=== PATIENT | female | born 1990 | race Caucasian/White ===

== ENCOUNTER 2020-06-30 15:55 | Emergency (ER) | payer BC ==
--- OUTSIDE RECORDS SUMMARY | 2020-06-30 15:57 | XMS REPORT | Continuity of Care Document ---
:1990 Author Organization [facility] t Address [address] [place] [address] Care Team Providers Name Role Phone Unavailable Unavailable Unavailable Problems This patient has no known problems. Allergies, Adverse Reactions, Alerts This patient has no known allergies or adverse reactions. Social History Smoking Status Start Date Stop Date Source Light Tobacco Smoker [place] [facility] Medications Ordered Filled Start Stop Current Ordering Indication Dosage Frequency Signature Comments Components Source Medication Medication Date Date Medication? Clinician (SIG) Name Name naproxen naproxen No 1 BID naproxen [place] 500 mg 500 mg 500 mg da tablet Take tablet Take tablet [facility] 1 tablet 1 tablet Take 1 al twice a day twice a day tablet Health by oral by oral twice a Outrea c route as route as day by h needed for needed for oral route Program 10 days. 10 days. as needed for pelvic for pelvic for 10 cramping cramping days. for pelvic cramping Immunizations Ordered Immunization Filled Immunization Date Status Commen ts Source Name Name Tdap Tdap 2013-12-28 Completed [place] 00:00:00 [facility] Vital Signs Vital Name Observation Time Observation Value Comments Source BP Diastolic 2020-05-25 00:00:00 87 [facility]Hg[facility] Height 2020-05-25 00:00:00 65 [in_i] [facility] BMI (Body Mass 2020-05-25 00:00:00 40.5 kg/m2 [facility] swimming teacher [facility] Index) [facility] Program BP Systolic 2020-05-25 00:00:00 129 mm[Hg] [facility] Body Weight 2020-05-25 00:00:00 3892 [oz_av] [facility] Procedures This patient has no known procedures. Plan of Care Planned Activity Planned Date Details Comments Source Diagnostic Test 2020-05-25 CBC w/ auto diff [place] [facility] Pending 00:00:00 [code = CBC w/ auto [facility] diff] Program Diagnostic Test 2020-05-25 CMP, serum or plasma [place] [facility] Pending 00:00:00 [code = CMP, serum [facility] [place] or plasma] Program Diagnostic Test 2020-05-25 urinalysis complete, [place] [facility] Pending 00:00:00 reflex culture [code Health Outreach = urinalysis Program complete, reflex culture] Diagnostic Test 2020-05-25 pap, IG + CT/NG + HR [place] [facility] Pending 00:00:00 HPV [code = pap, IG [facility] + CT/NG + HR HPV] Program Diagnostic Test 2020-05-25 RPR (rapid plasma [place] [facility] Pending 00:00:00 reagin), serum [code Health Outreach = RPR (rapid plasma Program reagin), serum] Diagnostic Test 2020-05-25 HIV (1+2) [place] [facility] iscop[facility] Pending 00:00:00 antibodies, EIA, Health Outr each serum, reflex HIV-1 Program western blot (WB) [code = HIV (1+2) antibodies, EIA, serum, reflex HIV-1 western blot (WB)] Diagnostic Test 2020-05-25 hepatitis panel [place] [facility] Pending 00:00:00 (A+B+C), acute, Health Outre ach serum [code = Program hepatitis panel (A+B+C), acute, serum] Encounters Start End Encounter Admission Attending Care Care Encounter Source Date/Time Date/Time Type Type Clinicians Facility Department ID 2020-05-25 2020-05-25 [place] - [id number] [facility] 00:00:00 00:00:00 BELTRAN Ritter: Janette sandoval [id number] [facility] [address] [facility] [address] [facility] [id number] , Ph. Results This patient has no known results.
--- NOTE | 2020-06-30 17:45 | ER ---
Nurse's Notes [facility] Name: Светлана Mcdowell Age: 29 yrs Sex: Female : 1990 Arrival Date: 06/30/2020 Time: 15:56 Bed 23 Private MD: Diagnosis: Acute upper respiratory infection, unspecified Presentation: 06/30 16:03 Chief complaint: Patient states: Cough and sore throat for 1.5 weeks. No fever. ll1 Coronavirus screen: Client denies travel out of the [place] in the last 14 days. chills, congestion, cough unrelated to allergies, diarrhea, difficulty breathing, fatigue, headache, muscle pain, runny nose, shortness of breath, sore throat, Client presents with at least one sign or symptom that may indicate coronavirus-19. Standard/surgical mask placed on the client. Ebola Screen: Patient denies travel to an Ebola-affected area in the 21 days before illness onset. Initial Sepsis Screen: Does the patient meet any 2 criteria? No. Patient's initial sepsis screen is negative. Does the patient have a suspected source of infection? Yes: Other: sore throat. Risk Assessment: Do you want to hurt yourself or someone else? Patient reports no desire to harm self or others. Onset of symptoms was June 23, 2020. 16:03 Method Of Arrival: Ambulatory ll1 16:03 Acuity: RUBINA 3 ll1 Historical: - Allergies: 16:06 Amoxicillin; ll1 - PMHx: 16:06 None; ll1 - PSHx: 16:06 ; ll1 - Immunization history:: Flu vaccine is not up to date. - Social history:: Smoking status: Patient reports the use of cigarette tobacco products, smokes one pack cigarettes per day. Screenin:32 Abuse screen: Denies threats or abuse. Nutritional screening: No deficits noted. bw Tuberculosis screening: No symptoms or risk factors identified. Fall Risk None identified. Assessment: 16:32 General: Appears in no apparent distress. uncomfortable, Behavior is calm, cooperative. bw Pain: Denies pain. Neuro: No deficits noted. Cardiovascular: No deficits noted. Respiratory: Airway is patent Respiratory effort is even, unlabored, Breath sounds are clear Breath sounds are diminished bilaterally. EENT: Throat is reddened. Vital Signs: 16:03 BP 123 / 70; Pulse 76; Resp 17; Temp 98.9; Pulse Ox 98% ; Weight 99.79 kg; Height 5 ft. ll1 4 in. (162.56 cm); Pain 6/10; 16:03 Body Mass Index 37.76 (99.79 kg, 162.56 cm) ll1 ED Course: 15:56 Patient arrived in ED. as 16:05 Triage completed. ll1 16:06 Arm band placed on. 1 16:27 Inderjit Mack PA is PHCP. jr8 16:27 Navin Mars MD is Attending Physician. jr8 16:30 Alley Ramos, RN is Primary Nurse. bw 16:32 Patient has correct armband on for positive identification. Bed in low position. Call light in reach. Side rails up X 1. 16:32 No provider procedures requiring assistance completed. bw 17:56 Patient did not have IV access during this emergency room visit. vg1 Administered Medications: No medications were administered Outcome: 17:44 Discharge ordered by . [facility] 17:56 Discharged to home ambulatory. vg1 17:56 Condition: stable 17:56 Discharge instructions given to patient, Instructed on discharge instructions, follow up and referral plans. medication usage, Demonstrated understanding of instructions, follow-up care, medications, Prescriptions given X 2. 17:57 Patient left the ED. vg1 Signatures: Linda Landry Josh, PA PA jr8 Maria Victoria Garcia RN JOVANI 1 Darlyn Dobbs RN RN [facility] Alley Ramos RN RN
--- NOTE | 2020-06-30 17:45 | EDPHYS ---
Physician Documentation [facility] Name: Светлана Mcdowell Age: 29 yrs Sex: Female : 1990 Arrival Date: 06/30/2020 Time: 15:56 Bed 23 Private MD: ED Physician Navin Mars HPI: 06/30 17:26 This 29 yrs old Female presents to ER via Ambulatory with complaints of Sore jr8 Throat, Cough. 17:26 The patient presents with sore throat. The patient describes throat pain as dry. Onset: jr8 The symptoms/episode began/occurred gradually, 1 week(s) ago. Severity of symptoms: At their worst the symptoms were mild, in the emergency department the symptoms are unchanged. Modifying factors: The symptoms are alleviated by nothing, the symptoms are aggravated by nothing. Associated signs and symptoms: Pertinent positives: cough. The patient has not experienced similar symptoms in the past. The patient has not recently seen a physician. Historical: - Allergies: 16:06 Amoxicillin; ll1 - PMHx: 16:06 None; ll1 - PSHx: 16:06 ; ll1 - Immunization history:: Flu vaccine is not up to date. - Social history:: Smoking status: Patient reports the use of cigarette tobacco products, smokes one pack cigarettes per day. ROS: 17:26 Eyes: Negative for injury, pain, redness, and discharge, Neck: Negative for injury, jr8 pain, and swelling, Cardiovascular: Negative for chest pain, palpitations, and edema, Abdomen/GI: Negative for abdominal pain, nausea, vomiting, diarrhea, and constipation, Back: Negative for injury and pain, MS/Extremity: Negative for injury and deformity, Skin: Negative for injury, rash, and discoloration, Neuro: Negative for headache, weakness, numbness, tingling, and seizure. 17:26 ENT: Positive for sore throat. 17:26 Respiratory: Positive for cough, with green sputum, wheezing, Negative for dyspnea on exertion, orthopnea, shortness of breath. Exam: 17:26 Eyes: Pupils equal round and reactive to light, extra-ocular motions intact. Lids and jr8 lashes normal. Conjunctiva and sclera are non-icteric and not injected. Cornea within normal limits. Periorbital areas with no swelling, redness, or edema. ENT: Nares patent. No nasal discharge, no septal abnormalities noted. Tympanic membranes are normal and external auditory canals are clear. Oropharynx with no redness, swelling, or masses, exudates, or evidence of obstruction, uvula midline. Mucous membranes moist. Neck: Trachea midline, no thyromegaly or masses palpated, and no cervical lymphadenopathy. Supple, full range of motion without nuchal rigidity, or vertebral point tenderness. No Meningismus. Cardiovascular: Regular rate and rhythm with a normal S1 and S2. No gallops, murmurs, or rubs. Normal PMI, no JVD. No pulse deficits. Respiratory: Lungs have equal breath sounds bilaterally, clear to auscultation and percussion. No rales, rhonchi or wheezes noted. No increased work of breathing, no retractions or nasal flaring. Abdomen/GI: Soft, non-tender, with normal bowel sounds. No distension or tympany. No guarding or rebound. No evidence of tenderness throughout. Back: No spinal tenderness. No costovertebral tenderness. Full range of motion. Skin: Warm, dry with normal turgor. Normal color with no rashes, no lesions, and no evidence of cellulitis. MS/ Extremity: Pulses equal, no cyanosis. Neurovascular intact. Full, normal range of motion. Neuro: Awake and alert, GCS 15, oriented to person, place, time, and situation. Cranial nerves II-XII grossly intact. Motor strength 5/5 in all extremities. Sensory grossly intact. Cerebellar exam normal. Normal gait. Vital Signs: 16:03 BP 123 / 70; Pulse 76; Resp 17; Temp 98.9; Pulse Ox 98% ; Weight 99.79 kg; Height 5 ft. ll1 4 in. (162.56 cm); Pain 6/10; 16:03 Body Mass Index 37.76 (99.79 kg, 162.56 cm) ll1 MDM: 16:28 Patient medically screened. [facility] 17:43 Data reviewed: vital signs, nurses notes, lab test result(s), and as a result, I will jr8 discharge patient. Data interpreted: Pulse oximetry: on room air is 98 %. Interpretation: normal. Counseling: I had a detailed discussion with the patient and/or guardian regarding: the historical points, exam findings, and any diagnostic results supporting the discharge/admit diagnosis, lab results, the need for outpatient follow up, a family practitioner, to return to the emergency department if symptoms worsen or persist or if there are any questions or concerns that arise at home. 06/30 17:19 Order name: Diet Regular; Complete Time: 17:20 bw Administered Medications: No medications were administered Disposition: 22:15 Co-signature as Attending Physician, Navin Mars MD I agree with the assessment and kdr plan of care. Disposition: 06/30/20 17:44 Discharged to Home. Impression: Acute upper respiratory infection, unspecified. - Condition is Stable. - Discharge Instructions: Upper Respiratory Infection, Adult, COVID-19. - Prescriptions for Prednisone 20 mg Oral Tablet - take 1 tablet by ORAL route once daily for 5 days; 5 tablet. Guaifenesin AC 10- 100 mg/5 mL Oral Liquid - take 10 milliliter by ORAL route every 4 hours As needed; 240 milliliter. - Work release form, Medication Reconciliation Form, Thank You Letter, Antibiotic Education, Prescription Opioid Use form. - Follow up: Private Physician; When: As needed; Reason: Recheck today's complaints, Continuance of care, Re-evaluation by your physician. - Problem is new. - Symptoms have improved. Signatures: Dispatcher [employer] [facility] Navin Mars MD MD [facility] Inderjit Mack PA PA jr8 Maria Victoria Garcia, RN RN vg1 Darlyn Dobbs RN RN ll1 Corrections: (The following items were deleted from the chart) 17:41 16:44 Influenza Screen (A \T\ B)+BA.LAB.BRZ ordered. [facility] 17:41 16:44 CORONAVIRUS+MR.LAB.BRZ ordered. [facility] 17:57 17:44 06/30/2020 17:44 Discharged to Home. Impression: Acute upper respiratory vg1 infection, unspecified. Condition is Stable. Forms are Medication Reconciliation Form, Thank You Letter, Antibiotic Education, Prescription Opioid Use. Follow up: Private Physician; When: As needed; Reason: Recheck today's complaints, Continuance of care, Re-evaluation by your physician. Problem is new. Symptoms have improved. jr8
[2020-06-30 18:03] VITALS: BP 123/70; TEMP 98.9; O2SAT 98
[2020-06-30 18:33] LABS: SARS-COV-2 RT PCR NEGATIVE (NEGATIVE)
== END 2020-06-30 17:57 | disposition home or self-care (01) ==
LOC: ER 15:55
DX: J06.9 Acute upper respiratory infection, unspecified (principal); Z20.822 Contact with and (suspected) exposure to COVID-19; F17.210 Nicotine dependence, cigarettes, uncomplicated
CPT/HCPCS: 0240U; 99282